=== PATIENT | female | born 1940 | race African-American/Black ===

== ENCOUNTER 2016-10-30 06:46 | Emergency (ER) | payer MEDICARE, OTHER ==
[~2016-10-30] VITALS: Ht 160 cm; Wt 88.0 kg
[~2016-10-30 06:46] MED LIST: ALPRAZOLAM0.25 M1 OR; AMBIEN5 MG PO; AMLODIPINE10 MG OR; AMLODIPINE5 MG PO; APAP/HYDROCO1 TA1 PO; APRESOLINE25 MG/TAB PO; APRESOLINE50 MG OR; ARICEPT10 MG PO; ASPIRIN EC81 MG PO; ATROVENT HFA17 MCG IN; BAYER LOW81 MG OR; BLOOD PRESSURE; CALCIUM + D OR; CARBAMAZEPIN200 MG OR; CELEBREX200 MG OR; CHOLESTEROL PILL; CLONIDINE0.1 MG PO; COUMADIN5 MG OR; COUMADIN5 MG PO; COUMADIN7.5 MG OR; CRESTOR5 MG OR; D3400 UNIT PO; DARVOCET-N 100100 MG OR; DILAUDID2 MG PO; DIOVAN320 MG OR; DUONEB IN; EFFEXOR75 MG PO; FLEXERIL OR; FUROSEMIDE20 MG PO; GABAPENTIN300 MG PO; HYDRALAZINE50 MG PO; LASIX40 MG OR; LOPRESSOR50 MG OR; LORCET OR; LORTAB 10 PO; LORTAB 10-325 M1 TAB PO; LORTAB 1010 MG PO; LORTAB5 PO; LOSARTAN POTASS50 MG PO; LOVENOX80 MG/0.8 SC; MECLIZINE25 MG PO; METOPROL TAR50 MG OR; MOBIC15 MG OR; MULT VITAMI1; MULTI VIT OR; NAPROSYN500 MG OR; NITROFURANTOIN100 M1 PO; NORCO1 TA1 PO; NORVASC10 M1 OR; NYSTATIN TOP; OMEPRAZOLE20 MG OR; OSCAL 500/1 TAB OR; PAROXETINE20 MG PO; PAXIL40 MG OR; PAXIL40 MG PO; PERCOCET 5/325M1 TAB OR; PREDNISONE10 MG OR; PRILOSEC20 MG PO; SILVADENE1 % EX; SIMVASTATIN20 MG OR; TEGRETOL OR; TEKTURNA300 MG OR; TRAMADOL HCL50 MG PO; ULTRAM50 M1 PO; VALTURNA PO; VENLAFAXINE HCL75 M1 PO; WARFARIN5 MG OR; WARFARIN5 MG PO; XANAX0.25 MG OR; ZITHROMAX250 MG PO; ZOCOR20 MG OR; ZPAK OR; [UNRECOGNIZED DRUG - OTHER] OR; [UNRECOGNIZED DRUG - REMARK]
[2016-10-30] MEDS ORDERED: PERCOCET 5/325M1 TAB PO (07:58)
[2016-10-30 08:07] VITALS: BP 144/81
== END 2016-10-30 08:13 | disposition home or self-care (01) ==
LOC: ED 06:46
DX: M79.605 Pain in left leg (principal); M54.16 Radiculopathy, lumbar region

== ENCOUNTER 2017-02-27 07:22 | Emergency (ER) | payer MEDICARE, OTHER ==
[~2017-02-27] VITALS: Ht 160 cm; Wt 96.0 kg
[~2017-02-27 07:22] MED LIST changes: +PERCOCET 5/325M1 TAB PO
[2017-02-27 08:09] VITALS: BP 128/75
[2017-02-27] MEDS ORDERED: PERCOCET 5/325M1 TAB PO (08:09)
[2017-02-27] MEDS ORDERED: EC-NAPROSYN500 MG PO (08:09)
== END 2017-02-27 08:20 | disposition home or self-care (01) ==
LOC: ED 07:22
DX: S80.01XA Contusion of right knee, initial encounter (principal); M25.561 Pain in right knee; W01.198A Fall on same level from slipping, tripping and stumbling with subsequent striking against other object, initial encounter; Y93.89 Activity, other specified; Y92.009 Unspecified place in unspecified non-institutional (private) residence as the place of occurrence of the external cause

== ENCOUNTER 2017-03-02 15:52 | Inpatient (IN) | payer MEDICARE, OTHER ==
[~2017-03-02] VITALS: Ht 160 cm; Wt 97.8 kg
[~2017-03-02 15:52] MED LIST changes: +EC-NAPROSYN500 MG PO
[2017-03-02 16:44] LABS: HEMOGLOBIN 9.3 g/dl (12.0-16.0); IMMATURE GRANULOCYTES 0.7 % (0.0-1.0); MEAN CELL VOLUME 98.6 fL CALC (80.0-100.0); MEAN CORPUSCULAR HGB 31.6 pG CALC (26.0-32.0); MEAN CORPUSCULAR HGB CONC 32.1 g/L CALC (32.0-36.0); NEUT# 7.08 thou/uL (2.00-7.15); RED BLOOD COUNT 2.94 mill/uL (4.20-5.60); RED CELL DISTRI WIDTH 13.9 % (11.5-15.5)
[2017-03-02 17:00] LABS: ALBUMIN 3.9 g/dL (3.2-5.0); BILIRUBIN, TOTAL 0.5 mg/dL (0.0-1.4); CREATININE 1.9 mg/dL (0.5-1.0); TOTAL PROTEIN 7.4 g/dL (6.3-8.2)
[2017-03-02 17:12] LABS: INTERNATIONAL NORMALIZED RATIO 4.9 RATIO (0.7-1.3); PROTHROMBIN TIME 60.3 SECONDS (9.0-12.5)
[2017-03-02] MEDS ORDERED: CELEBREX200 M1 PO (17:15)
[2017-03-02] MEDS ORDERED: ALLEGRA180 MG PO (17:19)
[2017-03-02] MEDS ORDERED: BISACODYL5 MG PO (17:19)
[2017-03-02 18:08] VITALS: BP 162/78
[2017-03-02 20:00] VITALS: BP 138/72
[2017-03-03 04:00] VITALS: BP 131/73
[2017-03-03 05:31] LABS: HEMATOCRIT 29.9 % (37.0-47.0); HEMOGLOBIN 9.5 g/dl (12.0-16.0); IMMATURE GRANULOCYTES 0.6 % (0.0-1.0); MEAN CORPUSCULAR HGB 31.5 pG CALC (26.0-32.0); MEAN CORPUSCULAR HGB CONC 31.8 g/L CALC (32.0-36.0); NEUT# 6.16 thou/uL (2.00-7.15); RED BLOOD COUNT 3.02 mill/uL (4.20-5.60); RED CELL DISTRI WIDTH 13.7 % (11.5-15.5)
[2017-03-03 06:16] LABS: INTERNATIONAL NORMALIZED RATIO 4.6 RATIO (0.7-1.3); PROTHROMBIN TIME 55.6 SECONDS (9.0-12.5)
[2017-03-03 06:28] LABS: CALCIUM 8.8 mg/dL (8.4-10.2); CREATININE 1.4 mg/dL (0.5-1.0); POTASSIUM 4.4 mmol/l (3.5-5.1)
[2017-03-03 07:59] VITALS: BP 136/70
[2017-03-03 15:00] VITALS: BP 155/74
[2017-03-03 19:50] VITALS: BP 154/86
[2017-03-04 04:24] VITALS: BP 142/72
[2017-03-04 06:18] LABS: HEMATOCRIT 28.7 % (37.0-47.0); HEMOGLOBIN 9.2 g/dl (12.0-16.0); IMMATURE GRANULOCYTES 1.6 % (0.0-1.0); MEAN CORPUSCULAR HGB 31.7 pG CALC (26.0-32.0); MEAN CORPUSCULAR HGB CONC 32.1 g/L CALC (32.0-36.0); NEUT# 5.39 thou/uL (2.00-7.15); RED BLOOD COUNT 2.9 mill/uL (4.20-5.60); RED CELL DISTRI WIDTH 13.9 % (11.5-15.5)
[2017-03-04 06:36] LABS: INTERNATIONAL NORMALIZED RATIO 2.4 RATIO (0.7-1.3); PROTHROMBIN TIME 28.1 SECONDS (9.0-12.5)
[2017-03-04 06:41] LABS: CALCIUM 8.8 mg/dL (8.4-10.2); CREATININE 1.2 mg/dL (0.5-1.0); POTASSIUM 4.4 mmol/l (3.5-5.1)
[2017-03-04 15:55] VITALS: BP 146/70
[2017-03-04 19:20] VITALS: BP 151/77
[2017-03-05 03:37] VITALS: BP 125/70
[2017-03-05 06:06] LABS: CREATININE 1.1 mg/dL (0.5-1.0); POTASSIUM 4.4 mmol/l (3.5-5.1)
[2017-03-05 06:17] LABS: INTERNATIONAL NORMALIZED RATIO 1.4 RATIO (0.7-1.3); PROTHROMBIN TIME 15.3 SECONDS (9.0-12.5)
[2017-03-05 08:00] VITALS: BP 141/72
[2017-03-05 14:03] VITALS: BP 150/72
[2017-03-05 14:05] VITALS: BP 150/72
[2017-03-05] MEDS ORDERED: FLORASTOR250 M1 PO (15:23)
[2017-03-05] MEDS ORDERED: KEFLEX500 MG PO (15:23)
== END 2017-03-05 16:39 | disposition home or self-care (01) | DRG 603 ==
LOC: ENPENDDIS → ED 15:52 → ED-I 17:05 → ED 17:15 → MS2 17:16
PROVIDERS: Emergency Medicine; ADMIT Internal Medicine; ATTEND Internal Medicine
DX: L03.115 Cellulitis of right lower limb (principal); N17.9 Acute kidney failure, unspecified; I12.9 Hypertensive chronic kidney disease with stage 1 through stage 4 chronic kidney disease, or unspecified chronic kidney disease; N18.9 Chronic kidney disease, unspecified; S89.91XA Unspecified injury of right lower leg, initial encounter; E78.5 Hyperlipidemia, unspecified; M19.90 Unspecified osteoarthritis, unspecified site; K21.9 Gastro-esophageal reflux disease without esophagitis; M81.0 Age-related osteoporosis without current pathological fracture; F32.9 Major depressive disorder, single episode, unspecified; G62.9 Polyneuropathy, unspecified; R79.1 Abnormal coagulation profile; G89.4 Chronic pain syndrome; T45.515A Adverse effect of anticoagulants, initial encounter; T39.395A Adverse effect of other nonsteroidal anti-inflammatory drugs [NSAID], initial encounter; W07.XXXA Fall from chair, initial encounter; Y92.009 Unspecified place in unspecified non-institutional (private) residence as the place of occurrence of the external cause; Z86.711 Personal history of pulmonary embolism; Z86.73 Personal history of transient ischemic attack (TIA), and cerebral infarction without residual deficits
CPT/HCPCS: G0378; J1650

== ENCOUNTER 2017-04-11 08:00 | Day surgery (SDC) | payer MEDICARE, OTHER ==
[~2017-04-11] VITALS: Ht 160 cm; Wt 94.3 kg
[~2017-04-11 08:00] MED LIST changes: +ALLEGRA180 MG PO; +BISACODYL5 MG PO; +CALCIUM + D3 601 TAB PO; +CELEBREX200 M1 PO; +FLONASE AL50 MCG/ACT; +FLORASTOR250 M1 PO; +GABAPENTIN100 MG PO; -GABAPENTIN300 MG PO; +KEFLEX500 MG PO; +PROLIA60 MG/ML SC; +TEMAZEPAM15 MG PO
[2017-04-11 10:41] VITALS: BP 158/81
== END 2017-04-11 10:33 | disposition home or self-care (01) ==
LOC: ENDO 08:00 → ORM 19:45 → ENDO 19:45
PROVIDERS: ATTEND Internal Medicine Gastroenterology
PROC: 0DB78ZX Excision of Stomach, Pylorus, Via Natural or Artificial Opening Endoscopic, Diagnostic (ICD-10-PCS; principal; 2017-04-11)
PROC: 0D738ZZ Dilation of Lower Esophagus, Via Natural or Artificial Opening Endoscopic (ICD-10-PCS; 2017-04-11)
PROC: 0D718ZZ Dilation of Upper Esophagus, Via Natural or Artificial Opening Endoscopic (ICD-10-PCS; 2017-04-11)
DX: K22.2 Esophageal obstruction (principal); K21.9 Gastro-esophageal reflux disease without esophagitis; K59.00 Constipation, unspecified; K62.5 Hemorrhage of anus and rectum; K44.9 Diaphragmatic hernia without obstruction or gangrene; K31.89 Other diseases of stomach and duodenum; K29.00 Acute gastritis without bleeding

== ENCOUNTER 2017-06-21 17:45 | Emergency (ER) | payer MEDICARE, OTHER ==
[~2017-06-21] VITALS: Ht 160 cm; Wt 96.0 kg
[2017-06-21 19:15] VITALS: BP 137/68
== END 2017-06-21 19:15 | disposition home or self-care (01) ==
LOC: ED 17:45
DX: G89.29 Other chronic pain (principal); M79.605 Pain in left leg; M54.5 Low back pain; M79.652 Pain in left thigh; M25.562 Pain in left knee

== ENCOUNTER → 2018-10-12 | Outpatient (REF) | payer MEDICARE, OTHER ==
[~2018-10-12] MED LIST changes: +ATIVAN0.5 MG PO; +FLEXERIL PO; +PERCOCET 10/31 COMBO PO; +TORADOL PO
[2018-10-12 15:26] LABS: HEMATOCRIT 28.7 % (37.0-47.0); IMMATURE GRANULOCYTES 0.7 % (0.0-5.0); MEAN CELL VOLUME 98.6 fL CALC (80.0-100.0); MEAN CORPUSCULAR HGB 30.9 pG CALC (26.0-32.0); MEAN CORPUSCULAR HGB CONC 31.4 g/L CALC (32.0-36.0); NEUT# 5.75 thou/uL (2.00-7.15); RED BLOOD COUNT 2.91 mill/uL (4.20-5.60); RED CELL DISTRI WIDTH 13.7 % (11.5-15.5)
[2018-10-12 15:30] LABS: INTERNATIONAL NORMALIZED RATIO 1.7 RATIO (0.7-1.3); PROTHROMBIN TIME 17.4 SECONDS (9.0-12.5)
== END | disposition home or self-care (01) ==
LOC: CT 14:00
PROVIDERS: Internal Medicine; ATTEND Nurse Practitioner Adult Health
DX: J98.4 Other disorders of lung (principal); Z79.01 Long term (current) use of anticoagulants

== ENCOUNTER 2018-10-15 12:08 | Outpatient (RCR) | payer MEDICARE, OTHER ==
--- NOTE | 2018-10-10 09:25 | NUR ---
PT TO ICU 2 BY WC WITH SECURITY. VS TAKEN. PT STABLE. IV THERAPY PENDING MEDICATION FROM PHARMACY. DELAY IN MEDICATION/THERAPY D/T CODE BLUE IN ER.
--- NOTE | 2018-10-10 09:44 | NUR ---
PT AWARE OF DELAY OF TREATMENT. PT VOICING DISCONTENT OVER HAVING TO WAIT BC "SHE THOUGHT IT WOULD BE REAL QUICK".
[2018-10-10 09:51] VITALS: BP 127/89
[~2018-10-15 12:08] MED LIST changes: -ATIVAN0.5 MG PO; -TORADOL PO
== END 2018-10-15 13:08 | disposition home or self-care (01) ==
LOC: INF 12:08
PROVIDERS: ATTEND Internal Medicine
DX: I82.509 Chronic embolism and thrombosis of unspecified deep veins of unspecified lower extremity (principal); I26.99 Other pulmonary embolism without acute cor pulmonale

== ENCOUNTER → 2018-10-15 | Outpatient (REF) | payer MEDICARE, OTHER ==
[2018-10-15 13:04] LABS: HEMATOCRIT 27.6 % (37.0-47.0); HEMOGLOBIN 8.4 g/dl (12.0-16.0); MEAN CELL VOLUME 99.3 fL CALC (80.0-100.0); MEAN CORPUSCULAR HGB 30.2 pG CALC (26.0-32.0); MEAN CORPUSCULAR HGB CONC 30.4 g/L CALC (32.0-36.0); RED BLOOD COUNT 2.78 mill/uL (4.20-5.60); RED CELL DISTRI WIDTH 13.6 % (11.5-15.5)
[2018-10-15 13:16] LABS: CREATININE 2.6 mg/dL (0.5-1.0); POTASSIUM 4.4 mmol/l (3.5-5.1)
== END | disposition home or self-care (01) ==
LOC: LAB 11:18
PROVIDERS: ATTEND Nurse Practitioner Family
DX: D63.1 Anemia in chronic kidney disease (principal); N18.3 Chronic kidney disease, stage 3 (moderate)

== ENCOUNTER 2018-11-01 19:14 | Emergency (ER) | payer MEDICARE, OTHER ==
[~2018-11-01] VITALS: Ht 160 cm; Wt 97.0 kg
[2018-11-01 20:01] LABS: HEMATOCRIT 28.6 % (37.0-47.0); HEMOGLOBIN 8.7 g/dl (12.0-16.0); IMMATURE GRANULOCYTES 0.5 % (0.0-5.0); MEAN CELL VOLUME 97.6 fL CALC (80.0-100.0); MEAN CORPUSCULAR HGB 29.7 pG CALC (26.0-32.0); MEAN CORPUSCULAR HGB CONC 30.4 g/L CALC (32.0-36.0); NEUT# 7.63 thou/uL (2.00-7.15); RED BLOOD COUNT 2.93 mill/uL (4.20-5.60)
[2018-11-01 20:23] LABS: D-DIMER 0.73 mg/L (0.19-0.60); INTERNATIONAL NORMALIZED RATIO 1.6 RATIO (0.7-1.3); PROTHROMBIN TIME 16.5 SECONDS (9.0-12.5)
[2018-11-01 20:42] LABS: ALBUMIN 3.9 g/dL (3.2-5.0); ALKALINE PHOSPHATASE 81 u/l (38-126); BILIRUBIN, TOTAL 0.4 mg/dL (0.0-1.4); BUN 27 mg/dL (8-23); BUN/CREATININE RATIO 11 (12-20 (CALC)); CARBON DIOXIDE 25 mmol/l (22-30); CHLORIDE 104 mmol/l (95-108); CREATININE 2.5 mg/dL (0.5-1.0); GFR 19 ML/MIN (>=60 (CALC)); GFR FOR AFR.AMER. 22 ML/MIN (>=60 (CALC)); POTASSIUM 3.7 mmol/l (3.5-5.1); SGOT/AST 21 u/l (9-36); TOTAL PROTEIN 7.1 g/dL (6.3-8.2)
[2018-11-01 20:53] LABS: MYOGLOBIN 69 ng/mL (0 - 62)
[2018-11-01 21:03] LABS: ANION GAP 13 (6-22 (CALC)); SODIUM 138 mmol/l (137-146)
[2018-11-01 21:19] LABS: URINE BILIRUBIN - DIPSTICK NEGATIVE (NEGATIVE); URINE BLOOD DIPSTICK MODERATE (NEGATIVE); URINE COLOR YELLOW; URINE GLUCOSE - DIPSTICK NEGATIVE (NEGATIVE); URINE KETONE NEGATIVE (NEGATIVE); URINE LEUK ESTERASE NEGATIVE (NEGATIVE); URINE NITRITE - DIPSTICK NEGATIVE (Negative); URINE PROTEIN - DIPSTICK 30 mg/dL (NEG-TRACE); URINE SPECIFIC GRAVITY 1.015; URINE UROBILINOGEN - DIPSTICK 0.2 E.U./dL (0.2)
[2018-11-01 21:41] LABS: URINE SQUAMOUS EPITHELIAL CELL FEW EPI/hpf (0-FEW)
[2018-11-01] MEDS ORDERED: ATIVAN0.5 MG PO (21:48)
[2018-11-01] MEDS ORDERED: TORADOL PO (21:48)
[2018-11-01 23:10] VITALS: BP 127/58
== END 2018-11-01 23:10 | disposition home or self-care (01) ==
LOC: ED 19:14
PROVIDERS: Family Medicine
DX: R07.89 Other chest pain (principal); F41.9 Anxiety disorder, unspecified; R79.1 Abnormal coagulation profile; I10 Essential (primary) hypertension; Z86.711 Personal history of pulmonary embolism; R06.02 Shortness of breath
CPT/HCPCS: J1650; J2060

== ENCOUNTER 2018-11-06 21:31 | Observation (INO) | payer MEDICARE, OTHER ==
[~2018-11-06] VITALS: Ht 160 cm; Wt 95.0 kg
[~2018-11-06 21:31] MED LIST changes: +ATIVAN0.5 MG PO; +TORADOL PO
--- NOTE | 2018-11-06 21:34 | NUR ---
PT IMMEDIATELY TO ROOM # 15 FOR BEDSDIE TRIAGE
--- NOTE | 2018-11-06 22:15 | NUR ---
RT AT BEDSIDE FOR ABG. PT MEDICATED ORDERED.
[2018-11-06 22:16] LABS: HEMATOCRIT 30.1 % (37.0-47.0); HEMOGLOBIN 9.3 g/dl (12.0-16.0); IMMATURE GRANULOCYTES 0.6 % (0.0-5.0); MEAN CELL VOLUME 99.3 fL CALC (80.0-100.0); MEAN CORPUSCULAR HGB 30.7 pG CALC (26.0-32.0); MEAN CORPUSCULAR HGB CONC 30.9 g/L CALC (32.0-36.0); RED BLOOD COUNT 3.03 mill/uL (4.20-5.60); RED CELL DISTRI WIDTH 14.3 % (11.5-15.5)
--- NOTE | 2018-11-06 22:30 | NUR ---
PT GIVEN WARM BLANKETS AND LIGHTS DIMMED FOR COMFORT. CALL LIGHT IN REACH.
[2018-11-06 22:32] LABS: ACT PARTIAL THROMBO TIME 62.5 SECONDS (20.0-32.5); ALBUMIN 4.2 g/dL (3.2-5.0); ALKALINE PHOSPHATASE 90 u/l (38-126); ANION GAP 13 (6-22 (CALC)); BILIRUBIN, TOTAL 0.4 mg/dL (0.0-1.4); BUN 26 mg/dL (8-23); BUN/CREATININE RATIO 13 (12-20 (CALC)); CARBON DIOXIDE 25 mmol/l (22-30); CHLORIDE 110 mmol/l (95-108); CREATININE 2.1 mg/dL (0.5-1.0); GFR 23 ML/MIN (>=60 (CALC)); GFR FOR AFR.AMER. 27 ML/MIN (>=60 (CALC)); INTERNATIONAL NORMALIZED RATIO 2.6 RATIO (0.7-1.3); POTASSIUM 3.8 mmol/l (3.5-5.1); PROTHROMBIN TIME 26.6 SECONDS (9.0-12.5); SGOT/AST 34 u/l (9-36); SODIUM 143 mmol/l (137-146); TOTAL PROTEIN 8.1 g/dL (6.3-8.2)
[2018-11-06 22:43] LABS: MYOGLOBIN 47 ng/mL (0 - 62)
[2018-11-07] VITALS (9 sets, daily range): BP systolic 140–200; BP diastolic 69–96
--- NOTE | 2018-11-07 00:26 | NUR ---
DR HERNANDEZ AT BEDSIDE TO DISCUSS PLAN TO ADMIT. PT DECIDES SHE WANTS TO LEAVE, Patient decides to leave AMA. Multiple attempts made to ecourage patient to remain here for continued treatment. Explained to patient all risks of leaving against medical advice including . Pt verbalized understanding of all risks. Pt also encouraged to return to [facility] at any time, especially if symptoms continue or become worse. Pt verbalized understanding.
--- NOTE | 2018-11-07 01:00 | NUR ---
PT DECIDES SHE WANTS TO STAY AND BE ADMITTED AFTERALL. DR HERNANDEZ AT BEDSIDE TO DISCUSS PLAN.
--- NOTE | 2018-11-07 01:20 | NUR ---
PT ASSISTED TO RESTROOM VIA WC
--- NOTE | 2018-11-07 01:20 | NUR ---
REPORT TO CORTEZ RENEE
--- NOTE | 2018-11-07 01:45 | NUR ---
MULTIPLE ATTEMPTS MADE TO ESTABLISH IV UNSUCCESSFUL, DR HERNANDEZ NOTIFIED. STATES OK FOR PT TO GO TO [facility]SUR WITHOUT IV. PT TO MS IN STABLE CONDITION VIA WC.
--- NOTE | 2018-11-07 01:50 | NUR ---
PT ARRIVES TO THE FLOOR VIA WHEELCHAIR WITH HOUSE SUP IN STABLE CONDITION. PT AMUBULATEDS WITH UNSTEADY GAIT TO BED. PER ER STAFF NO IV AFTER MULTIPLE TRIES. DR HERNANDEZ AWARE. PT IS A&0 X3. NO PAIN AT THIS TIME. ASSESMENT COMLETED AT THIS TIME. PT ORIENTED TO ROOM AND CALL [facility]. INSTRUCTED TO CALL IF SHE NEEDED TO USE RR OR ANY THING ELSE. PT VERBALIZES UNDERSTANDING. CALL [facility] IN REACH. WILL CONTINUE TO MONITOR.
--- NOTE | 2018-11-07 05:29 | NUR ---
PT RESTING QUIETLY IN BED. NO S/S OF DISTRESS NOTED CALL [facility] IN REACH. WILL CONTINUE TO MONITOR.
[2018-11-07 05:55] LABS: CHOLESTEROL HDL RATIO 5.1 (<4.4 (CALC)); CREATININE 1.8 mg/dL (0.5-1.0); POTASSIUM 3.7 mmol/l (3.5-5.1)
--- NOTE | 2018-11-07 07:48 | NUR ---
PT A/O X3. SPEECH IS CLEAR. RESP EVEN AND UNLABORED. LUNG SOUNDS CLEAR. TELE IN PLACE. NITRO PATCH IN PLACE. BOWEL SOUNDS ACTIVE X4. STRONG RADIAL, WEAK PEDAL PULSES. PT HAS SOME BRUISING THROUGHOUT BODY. SKIN INTACT. NO C/O PAIN OR NEEDS. POC DISCUSSED. SAFETY PRECAUTIONS IN PLACE. CALL LIGHT IN REACH. WILL CONTINUE TO MONITOR.
[2018-11-07 09:35] LABS: HEMATOCRIT 30.1 % (37.0-47.0); HEMOGLOBIN 9.1 g/dl (12.0-16.0); IMMATURE GRANULOCYTES 0.5 % (0.0-5.0); MEAN CORPUSCULAR HGB 29.9 pG CALC (26.0-32.0); MEAN CORPUSCULAR HGB CONC 30.2 g/L CALC (32.0-36.0); NEUT# 5.15 thou/uL (2.00-7.15); RED BLOOD COUNT 3.04 mill/uL (4.20-5.60); RED CELL DISTRI WIDTH 14.3 % (11.5-15.5)
[2018-11-07 09:37] LABS: MAGNESIUM 1.9 mg/dL (1.6-2.3)
--- NOTE | 2018-11-07 12:05 | NUR ---
PT EATING LUNCH IN RECLINER. NO C/O PAIN OR NEEDS. CALL LIGHT IN REACH. WILL CONTINUE TO MONITOR.
[2018-11-07 13:37] LABS: URINE BILIRUBIN - DIPSTICK NEGATIVE (NEGATIVE); URINE BLOOD DIPSTICK MODERATE (NEGATIVE); URINE COLOR YELLOW; URINE GLUCOSE - DIPSTICK NEGATIVE (NEGATIVE); URINE KETONE NEGATIVE (NEGATIVE); URINE LEUK ESTERASE NEGATIVE (NEGATIVE); URINE NITRITE - DIPSTICK NEGATIVE (Negative); URINE PROTEIN - DIPSTICK 100 mg/dL (NEG-TRACE); URINE SPECIFIC GRAVITY 1.015; URINE UROBILINOGEN - DIPSTICK 0.2 E.U./dL (0.2)
[2018-11-07 15:13] LABS: URINE SQUAMOUS EPITHELIAL CELL FEW EPI/hpf (0-FEW)
--- NOTE | 2018-11-07 16:15 | NUR ---
PT SITTING IN RECLINER TALKING W/ FAMILY. NO C/O PAIN OR NEEDS. CALL LIGHT IN REACH. WILL CONTINUE TO MONITOR.
--- NOTE | 2018-11-07 20:10 | NUR ---
PATIENT RESTING IN BED AT THIS TIME-AWAKE ALERT AND ORIENTEDX3. PATIENT STATES THAT HER PAIN IS IMPROVED SINCE TAKING PAIN MEDS TO 4/10. PATIENT WITH TELE MONITOR IN PLACE. SAFETY PRECAUTIONS REINFORCED. CALL LIGHT IN REACH. WILL CONT TO MONITOR. CALL LIGHT IN REACH. WILL CONT TO MONITOR.
--- NOTE | 2018-11-07 21:15 | NUR ---
PATIENT RESTING IN BED-AWAKE AND ALERT. PATIENT MEDICATED WITH RESTORIL 15MG AND ATIVAN 0.5MG PO FOR SLEEP. TELE REMAINS IN PLACE. CALL LIGHT IN REACH. WILL CONT TO MONITOR.
[2018-11-08 00:04] VITALS: BP 157/78
--- NOTE | 2018-11-08 00:54 | NUR ---
PATIENT APPEARS SLEEPING AT THIS TIME WITH EYES CLOSED. RESP ARE EVEN AND UNLABORED. CALL LIGHT IN REACH. WILL CONT TO MONITOR.
--- NOTE | 2018-11-08 03:39 | NUR ---
PATIENT RESTING IN BED AND APPEARS SLEEPING AT THIS TIME. TELE MONITOR IN PLACE. CALL LIGHT IN REACH. WILL CONT TO MONITOR.
[2018-11-08 04:05] VITALS: BP 132/72
[2018-11-08 05:28] LABS: ANION GAP 13 (6-22 (CALC)); BUN 21 mg/dL (8-23); BUN/CREATININE RATIO 12 (12-20 (CALC)); CARBON DIOXIDE 25 mmol/l (22-30); CHLORIDE 108 mmol/l (95-108); CREATININE 1.8 mg/dL (0.5-1.0); GFR 27 ML/MIN (>=60 (CALC)); GFR FOR AFR.AMER. 33 ML/MIN (>=60 (CALC)); MAGNESIUM 1.8 mg/dL (1.6-2.3); POTASSIUM 3.8 mmol/l (3.5-5.1); SODIUM 143 mmol/l (137-146)
[2018-11-08 05:36] LABS: INTERNATIONAL NORMALIZED RATIO 2.3 RATIO (0.7-1.3); PROTHROMBIN TIME 24.1 SECONDS (9.0-12.5)
[2018-11-08 06:03] LABS: HEMATOCRIT 30.5 % (37.0-47.0); HEMOGLOBIN 9.4 g/dl (12.0-16.0); IMMATURE GRANULOCYTES 0.7 % (0.0-5.0); MEAN CELL VOLUME 97.4 fL CALC (80.0-100.0); MEAN CORPUSCULAR HGB CONC 30.8 g/L CALC (32.0-36.0); NEUT# 5.08 thou/uL (2.00-7.15); RED BLOOD COUNT 3.13 mill/uL (4.20-5.60); RED CELL DISTRI WIDTH 14.2 % (11.5-15.5)
--- NOTE | 2018-11-08 07:20 | NUR ---
PT REPORT RECIEVED FROM GUIDO GIBBONS. PT IN RECLINER RESTING. NO S/S OF DISTRESS. CALL LIGHT IN REACH. WILL CONTINUE TO MONITOR.
[2018-11-08 07:53] VITALS: BP 144/80
--- NOTE | 2018-11-08 07:53 | NUR ---
PT A/O X3. SPEECH IS CLEAR. RESP EVEN AND UNLABORED. LUNG SOUNDS CLEAR. TELE IN PLACE. BOWEL SOUNDS ACTIVE X4. STRONG RADIAL AND PEDAL. SKIN INTACT. PT DENIES ANY PAIN OR NEEDS. POC DISCUSSED. SAFETY PRECAUTIONS IN PLACE. CALL LIGHT IN REACH. WILL CONTINUE TO MONITOR.
--- NOTE | 2018-11-08 12:34 | NUR ---
PT EATING LUNCH IN RECLINER. NO C/O PAIN OR NEEDS. CALL LIGHT IN REACH. WILL CONTINUE TO MONITOR.
[2018-11-08 12:55] VITALS: BP 144/78
--- NOTE | 2018-11-08 14:05 | NUR ---
D/C INSTRUCTIONS DISCUSSED W/ PT. PT STATES UNDERSTANDING. IV REMOVED. CATHETER INTACT. PT GETTING DRESSED. GRANDSON AT BEDSIDE.
--- NOTE | 2018-11-08 14:11 | NUR ---
Discharge instructions given. Patient verbalizes understanding of same. Discharged in stable condition via Wheelchair to Home with family. All belongings sent with pt.
[2018-11-08 14:16] VITALS: BP 144/78
== END 2018-11-08 14:10 | disposition home or self-care (01) ==
LOC: ED 21:31 → ED-I 11-07 00:55 → ED 11-07 01:07 → MS2 11-07 01:08
PROVIDERS: Emergency Medicine; Nurse Practitioner Family; ADMIT Internal Medicine; ATTEND Internal Medicine
DX: I16.0 Hypertensive urgency (principal); I12.9 Hypertensive chronic kidney disease with stage 1 through stage 4 chronic kidney disease, or unspecified chronic kidney disease; N18.3 Chronic kidney disease, stage 3 (moderate); T46.5X6A Underdosing of other antihypertensive drugs, initial encounter; G62.9 Polyneuropathy, unspecified; M19.90 Unspecified osteoarthritis, unspecified site; E78.5 Hyperlipidemia, unspecified; R91.8 Other nonspecific abnormal finding of lung field; F41.9 Anxiety disorder, unspecified; F32.9 Major depressive disorder, single episode, unspecified; I48.91 Unspecified atrial fibrillation; D64.9 Anemia, unspecified; Z86.711 Personal history of pulmonary embolism; Z91.128 Patient's intentional underdosing of medication regimen for other reason; Z86.718 Personal history of other venous thrombosis and embolism; Z86.73 Personal history of transient ischemic attack (TIA), and cerebral infarction without residual deficits; Z79.01 Long term (current) use of anticoagulants; R06.02 Shortness of breath; R07.89 Other chest pain

== ENCOUNTER 2018-12-20 16:18 | Emergency (ER) | payer MEDICARE, OTHER ==
[~2018-12-20] VITALS: Ht 160 cm; Wt 97.0 kg
[~2018-12-20 16:18] MED LIST changes: +CALCITRIOL0.25 MC1 PO; +DIFLUCAN150 MG PO; +DONEPEZIL5 MG PO; +EMLA EX; +LASIX 40 MG TAB40 MG PO; +OXYBUTYNIN5 M1 PO; +VITAMIN D32000 UNI2 PO
[2018-12-20 18:21] LABS: HEMATOCRIT 28.4 % (37.0-47.0); HEMOGLOBIN 8.6 g/dl (12.0-16.0); IMMATURE GRANULOCYTES 0.9 % (0.0-5.0); MEAN CELL VOLUME 97.6 fL CALC (80.0-100.0); MEAN CORPUSCULAR HGB 29.6 pG CALC (26.0-32.0); MEAN CORPUSCULAR HGB CONC 30.3 g/L CALC (32.0-36.0); NEUT# 8.06 thou/uL (2.00-7.15); RED BLOOD COUNT 2.91 mill/uL (4.20-5.60); RED CELL DISTRI WIDTH 14.5 % (11.5-15.5)
[2018-12-20 18:52] LABS: INTERNATIONAL NORMALIZED RATIO 5.5 RATIO (0.7-1.3); PROTHROMBIN TIME 56.4 SECONDS (9.0-12.5)
[2018-12-20 18:58] LABS: ALBUMIN 4.1 g/dL (3.2-5.0); ALKALINE PHOSPHATASE 80 u/l (38-126); ANION GAP 15 (6-22 (CALC)); BILIRUBIN, TOTAL 0.5 mg/dL (0.0-1.4); BUN 27 mg/dL (8-23); BUN/CREATININE RATIO 13 (12-20 (CALC)); CARBON DIOXIDE 27 mmol/l (22-30); CHLORIDE 106 mmol/l (95-108); GFR 24 ML/MIN (>=60 (CALC)); GFR FOR AFR.AMER. 29 ML/MIN (>=60 (CALC)); POTASSIUM 3.6 mmol/l (3.5-5.1); SODIUM 143 mmol/l (137-146); TOTAL PROTEIN 7.6 g/dL (6.3-8.2)
[2018-12-20 19:00] LABS: SGOT/AST 71 u/l (9-36)
[2018-12-20 19:09] LABS: MYOGLOBIN 63 ng/mL (0 - 62)
[2018-12-20 20:37] LABS: URINE BILIRUBIN - DIPSTICK NEGATIVE (NEGATIVE); URINE BLOOD DIPSTICK LARGE (NEGATIVE); URINE COLOR YELLOW; URINE GLUCOSE - DIPSTICK NEGATIVE (NEGATIVE); URINE KETONE NEGATIVE (NEGATIVE); URINE NITRITE - DIPSTICK NEGATIVE (Negative); URINE PROTEIN - DIPSTICK 100 mg/dL (NEG-TRACE); URINE UROBILINOGEN - DIPSTICK 0.2 E.U./dL (0.2)
[2018-12-20 20:45] LABS: URINE LEUK ESTERASE MODERATE (NEGATIVE)
[2018-12-20 20:46] LABS: BARBITURATES NEGATIVE (NEGATIVE); COCAINE NEGATIVE (NEGATIVE); METHADONE NEGATIVE (NEGATIVE); OXCYCODONE NEGATIVE (NEGATIVE); TETRAHYDROCANNABIONOL NEGATIVE (NEGATIVE); TRICYLIC ANTIDEPRESSANTS NEGATIVE (NEGATIVE)
[2018-12-20 20:52] LABS: URINE BACTERIA FEW hpf; URINE RBC TNTC RBC/hpf (0-5); URINE SQUAMOUS EPITHELIAL CELL FEW EPI/hpf (0-FEW); URINE WBC 20-50 WBC/hpf (0-5)
[2018-12-21 00:15] VITALS: BP 162/70
== END 2018-12-21 00:15 | disposition short-term general hospital (02) ==
LOC: ED 16:18
PROVIDERS: Emergency Medicine
DX: I16.0 Hypertensive urgency (principal); J18.9 Pneumonia, unspecified organism; N39.0 Urinary tract infection, site not specified; D64.9 Anemia, unspecified; N28.9 Disorder of kidney and ureter, unspecified; D72.829 Elevated white blood cell count, unspecified; R91.8 Other nonspecific abnormal finding of lung field; D68.9 Coagulation defect, unspecified; R53.1 Weakness; R94.31 Abnormal electrocardiogram [ECG] [EKG]; Z86.711 Personal history of pulmonary embolism; Z79.01 Long term (current) use of anticoagulants

== ENCOUNTER 2019-04-05 06:53 | Observation (INO) | payer MEDICARE, OTHER ==
[~2019-04-05] VITALS: Ht 160 cm; Wt 105.7 kg
--- NOTE | 2019-04-05 07:13 | NUR ---
PT TAKEN TO ROOM VIA WHEELCHAIR, ACCOMPANIED BY FAMILY.
--- NOTE | 2019-04-05 07:25 | NUR ---
PER FAMILY PT HAS INCREASED GENERALIZED WEAKNESS AND PAIN TO LEFT HIP. PT A&O X 3. PT REPORTS MINIMAL CONFUSION WHICH IS BASELINE. PT DENIES ANY SOB OR CHEST PAIN. PT UP TO SIDE OF BED WITH 2 ASSIST TO CHANGE IN TO GOWN. BILATERAL LS DIMINISHED. PT AWARE OF PLAN OF CARE AND WAIT TIME. IV ACCESS OBTAINED. PSONS AT BEDSIDE.
--- NOTE | 2019-04-05 07:45 | NUR ---
LAB AT BEDSIDE, UNABLE TO GET SPECIMEN AT THIS TIME AFTER NUMEROUS ATTEMPTS.
[2019-04-05 08:08] LABS: HEMATOCRIT 38.6 % (37.0-47.0); HEMOGLOBIN 11.8 g/dl (12.0-16.0); IMMATURE GRANULOCYTES 1.1 % (0.0-5.0); MEAN CELL VOLUME 99.2 fL CALC (80.0-100.0); MEAN CORPUSCULAR HGB 30.3 pG CALC (26.0-32.0); MEAN CORPUSCULAR HGB CONC 30.6 g/L CALC (32.0-36.0); NEUT# 8.08 thou/uL (2.00-7.15); RED BLOOD COUNT 3.89 mill/uL (4.20-5.60); RED CELL DISTRI WIDTH 18.6 % (11.5-15.5)
[2019-04-05 08:19] LABS: ALBUMIN 3.9 g/dL (3.2-5.0); ALKALINE PHOSPHATASE 85 u/l (38-126); ANION GAP 18 (6-22 (CALC)); BILIRUBIN, TOTAL 0.4 mg/dL (0.0-1.4); BUN 27 mg/dL (8-23); BUN/CREATININE RATIO 10 (12-20 (CALC)); CARBON DIOXIDE 21 mmol/l (22-30); CHLORIDE 111 mmol/l (95-108); CREATININE 2.9 mg/dL (0.5-1.0); GFR 16 ML/MIN (>=60 (CALC)); GFR FOR AFR.AMER. 19 ML/MIN (>=60 (CALC)); POTASSIUM 4.7 mmol/l (3.5-5.1); SGOT/AST 23 u/l (9-36); SODIUM 145 mmol/l (137-146); TOTAL PROTEIN 7.4 g/dL (6.3-8.2)
--- NOTE | 2019-04-05 08:19 | NUR ---
PT RETURNED FROM CT SCAN. SON AT BEDSIDE. PT AND SON UNABLE TO RECONCILE MEDICATIONS AT THIS TIME. SON WILL BRING MEDICATION LIST ONCE HE COMES HOME.
--- NOTE | 2019-04-05 08:25 | NUR ---
PT BP 186/79. NOTIFIED OF INCREASING TREND. NO NEW ORDERS RECIEVED.
--- NOTE | 2019-04-05 08:30 | NUR ---
LAB AT BEDSIDE SAMPLE OBTAINED.
[2019-04-05 08:51] LABS: TSH, 3RD GENERATION 1.45 uIU/mL (0.47 - 4.68)
[2019-04-05 09:28] LABS: INTERNATIONAL NORMALIZED RATIO 2.1 RATIO (0.7-1.3); PROTHROMBIN TIME 21.3 SECONDS (9.0-12.5)
[2019-04-05 09:28] LABS: URINE BILIRUBIN - DIPSTICK NEGATIVE (NEGATIVE); URINE BLOOD DIPSTICK SMALL (NEGATIVE); URINE COLOR YELLOW; URINE GLUCOSE - DIPSTICK NEGATIVE (NEGATIVE); URINE KETONE NEGATIVE (NEGATIVE); URINE LEUK ESTERASE TRACE (NEGATIVE); URINE NITRITE - DIPSTICK NEGATIVE (Negative); URINE PH 5.5 (4.5-8.0); URINE PROTEIN - DIPSTICK 30 mg/dL (NEG-TRACE); URINE SPECIFIC GRAVITY <=1.005; URINE UROBILINOGEN - DIPSTICK 0.2 E.U./dL (0.2)
[2019-04-05 09:30] LABS: URINE EPITHELIAL CELLS MODERATE EPI/hpf (0-FEW); URINE WBC 0-2 WBC/hpf (0-5)
--- NOTE | 2019-04-05 09:30 | NUR ---
PT RESTING IN STRETCHER AND DENIES ANY NEEDS AT THIS TIME. CALL JAY OROZCO.
--- NOTE | 2019-04-05 10:00 | NUR ---
PER NÉSTOR IN PHARMCAY TO NOT DC MEDICATIONS AND WAIT FOR LIST FROM HOME TO RECONCILE.
--- NOTE | 2019-04-05 10:37 | NUR ---
REPORT CALLED TO KYLAH LORA
[2019-04-05 10:45] VITALS: BP 166/59
--- NOTE | 2019-04-05 10:45 | NUR ---
PT ARIVED TO THE FLOOR VIA STRETCHER ACCOMPANIED BY ER STAFF AND FAMILY. X3 ASSIST FROM STRETCHER TO BED. PT TOLERATED WELL. VS OBTAINED AND ASSESSMENT COMPLETED.PT ALERT AND ORIENTED. RESPIRATIONS EVEN AND UNLABORED ON RA. LUNGS SOUND CLEAR DIMINISHED. PEDAL PULSES STRONG. SKIN IS INTACT. PT ORIENTED TO ROOM AND CALL [facility]. SAFEY PRECAUTIONS IN PLACE. WILL CONTINUE TO MONITOR.
[2019-04-05] MEDS ORDERED: OMEPRAZOLE DR40 MG PO (11:53)
[2019-04-05] MEDS ORDERED: ZYLOPRIM100 MG PO (11:58)
--- NOTE | 2019-04-05 12:15 | NUR ---
PT RESTING IN BED NO S/S OF DISTRESS AT THIS TIME. PT DENIES ANY NEEDS. SAFETY PRECAUTIONS IN PLACE, WILL CONTINUE TO MONITOR.
[2019-04-05] MEDS ORDERED: ATIVAN0.5 MG PO (12:42)
[2019-04-05 14:30] VITALS: BP 157/75
--- NOTE | 2019-04-05 16:35 | NUR ---
PT RESTING IN BED. RESPIRATIONS EVEN AND UNLABORED ON RA. NO S/S OF DISTRESS AT THIS TIME. WILL CONTINUE TO MONITOR.
--- NOTE | 2019-04-05 19:45 | NUR ---
PATIENT RESTING IN BED AT THIS TIME. PATIENT IS AWAKE ALERT AND ORIENTEDX3. IV SITE TO RIGHT HAND INTACT-APPEARS HEALTHY AT THIS TIME. CALL LIGHT IN REACH. WILL CONT TO MONITOR.
[2019-04-05 19:50] VITALS: BP 150/71
--- NOTE | 2019-04-05 23:15 | NUR ---
PATIENT RESTING IN BED-MEDICATED WITH SOLU-MEDROL 40MG IVP ORDERED VIA RIGHT HAND SITE. SITE REMAINS HEALTHY AT THIS TIME. PATIENT WITH NO COMPLAINTS AT THIS TIME. CALL LIGHT IN REACH. WILL CONT TO MONITOR.
--- NOTE | 2019-04-06 00:09 | NUR ---
PATIENT RESTING IN BED-EASY TO AROUSE WITH NO COMPLAINTS AT THIS TIME. IVF NS PATENT AND INFUSING VIA RIGHT HAND SITE. SITE APPEARS HEALTHY AT THIS TIME. SAFETY PRECAUTIONS REINFORCED. CALL LIGHT IN REACH. WILL CONT TO MONITOR.
--- NOTE | 2019-04-06 03:03 | NUR ---
PATIENT APPEARS SLEEPING AT THIS TIME WITH EYES CLOSED. RESP ARE EVEN AND UNLABORED. IVF NS PATENT AND INFUSING 100CC/HR VIA RIGHT HAND SITE. CALL LIGHT IN REACH. WILL CONT TO MONITOR.
[2019-04-06 04:44] VITALS: BP 137/63
[2019-04-06 05:12] LABS: HEMATOCRIT 35.4 % (37.0-47.0); HEMOGLOBIN 10.9 g/dl (12.0-16.0); MEAN CELL VOLUME 98.9 fL CALC (80.0-100.0); MEAN CORPUSCULAR HGB 30.4 pG CALC (26.0-32.0); MEAN CORPUSCULAR HGB CONC 30.8 g/L CALC (32.0-36.0); RED BLOOD COUNT 3.58 mill/uL (4.20-5.60); RED CELL DISTRI WIDTH 18.3 % (11.5-15.5)
--- NOTE | 2019-04-06 05:16 | NUR ---
APPEARS SLEEPING AT THIS TIME. RESP ARE EVEN AND UNLABORED. IVF PATENT AND INFUSING VIA RIGHT HAND SITE AT 100CC/HR. SITE REMAINS HEALTHY AT THIS TIME. CALL LIGHT IN REACH. WILL CONT TO MONITOR.
[2019-04-06 05:40] LABS: CREATININE 2.4 mg/dL (0.5-1.0); POTASSIUM 4.6 mmol/l (3.5-5.1)
--- NOTE | 2019-04-06 07:00 | NUR ---
REPORT RECEIVED FROM GUIDO GIBBONS;PT RESTING IN SUPINE POSITION RECEIVING BED BATH BY WATSON RAI;PT A&O X3, INTRODUCED SELF TO PT AND POC DISCUSSED;RESPIRATIONS EVEN AND UNLABORED ON RA;PT DENIES ANY CURRENT PAIN OR DISCOMFORTS;IV FLUIDS INFUSING TO RH WITH EASE;ENCOURAGED TO CALL FOR ASSISTANCE IF NEEDED;FALL PRECAUTIONS NOTED WITH BED IN THE LOWEST POSITION AND CALL LIGHT IN REACH;WILL CONTINUE TO MONITOR
[2019-04-06 08:24] VITALS: BP 172/68
--- NOTE | 2019-04-06 08:25 | NUR ---
PT RESTING IN SEMI FOWLERS POSITION, A&O X3;VS OBTAINED AND ASSESSMENT COMPLETED;PT DENIES ANY CURRENT PAIN OR DISCOMFORTS,PAIN SCALE AND REPORTING EDUCATED;RESPIRATIONS EVEN AND UNLABORED ON RA,CLEAR/DIMINISHED LUNG SOUNDS NOTED;ABDOMEN DISTENDED/SOFT ON PALPATION AND ACTIVE IN ALL 4 QUADRANTS;WEAK PEDAL PULSES WITH +2 EDEMA NOTED TO BLE, WORSE IN THE RIGHT.ENCOURAGED ELEVATION OF BLE;#24G TO RIGHT HAND INFUSING NS @ 100ML/HR,SITE APPEARS HEALTHY;PT DENIES ANY ADDITIONAL NEEDS AT THIS TIME AND IS ENCOURAGED TO CALL FOR ASSISTANCE IF NEEDED;FALL PRECAUTIONS IN PLACE WITH CALL LIGHT IN REACH;WILL CONTINUE TO MONITOR
--- NOTE | 2019-04-06 09:30 | NUR ---
AT BEDSIDE DISCUSSING POC.
--- NOTE | 2019-04-06 09:45 | NUR ---
LAB AT BEDSIDE
[2019-04-06 10:30] VITALS: BP 167/74
[2019-04-06 10:43] LABS: INTERNATIONAL NORMALIZED RATIO 2.3 RATIO (0.7-1.3); PROTHROMBIN TIME 23.6 SECONDS (9.0-12.5)
--- NOTE | 2019-04-06 11:00 | NUR ---
PT RESTING IN SEMI FOWLERS POSITION WITH FAMILY MEMBER AT BEDSIDE;RESPIRATIONS EVEN AND UNLABORED ON RA;PT REPORTS BLE PAIN AND REQUESTS PAIN MEDICATION, PT MEDICATION SCHEDULE EDUCATED AND PT VERBALIZES UNDERSTANDING;IV SITE TO RIGHT HAND REMAINS PATENT INFUSING NS @ 100ML/HR PER ORDER;PT DENIES ANY ADDITIONAL NEEDS AT THIS TIME AND IS ENCOURAGED TO CALL FOR ASSISTANCE IF NEEDED;FALL PRECAUTIONS IN PLACE WITH CALL LIGHT IN REACH;WILL CONTINUE TO MONITOR
--- NOTE | 2019-04-06 13:29 | NUR ---
PHYSICAL THERAPY AT BEDSIDE WORKING WITH PATIENT.
[2019-04-06 14:11] VITALS: BP 185/85
--- NOTE | 2019-04-06 14:15 | NUR ---
PT REPORTS BLE PAIN RATING 8/10 ON THE PAIN SCALE AND REQUESTS PAIN MEDICATION, PT MEDICATED WITH PRN LORTAB 5/325MG PO;WILL CONTINUE TO MONITOR FOR EFFECTIVENESS
--- NOTE | 2019-04-06 15:20 | NUR ---
PT OOB RESTING IN RECLINER;RESPIRATIONS EVEN AND UNLABORED ON RA;PT REPORTS THAT PAIN TO BLE HAS DECREASED TO 6/10 ON THE PAIN SCALE;IV FLUIDS INFUSING AT 100ML/HR ORDER;PT AMBULATED WITH A 2 PERSON ASSIST TO BEDSIDE COMMODE WITH A WEAK GAIT;PT DENIES ANY ADDITIONAL NEEDS AT THIS TIME;ASSESSMENT REMAINS UNCHANGED;ENCOURAGED TO CALL FOR ASSISTANCE IF NEEDED;CALL LIGHT IN REACH;WILL CONTINUE TO MONITOR
[2019-04-06 16:11] VITALS: BP 157/82
--- NOTE | 2019-04-06 19:30 | NUR ---
PATIENT APPEARS SLEEPING AT THIS TIME WITH HOB ELEVATED AND EYES CLOSED. RESP ARE EVEN AND UNLABORED. IVF PATENT AND INFUSING VIA RIGHT HAND SITE AT 100CC/HR. CALL LIGHT IN REACH. WILL CONT TO MONITOR.
[2019-04-06 19:53] VITALS: BP 153/83
--- NOTE | 2019-04-06 20:21 | NUR ---
PATIENT RESTING IN BED AT THIS TIME WITH HOB ELEVATED. PATIENT IS AWAKE ALERT AND ORIENTEDX3. PATIENT STATES NO OR MINIMAL RELIEF FROM LORTAB GIVEN EARLIER FOR BLE AND FOOT PAIN. PATIENT WITH IV SITE TO RIGHT HAND INTACT AND INFUSING NS AT 100CC/HR. SITE APPEARS HEALTHY AT THIS TIME. WAS OOB TO BSC TO VOID EARLIER. NO BM TODAY.SAFETY PRECAUTIONS REINFORCED. CALL LIGHT IN REACH. WILL CONT TO MONITOR.
--- NOTE | 2019-04-07 03:23 | NUR ---
PATIENT RESTING IN BED WATCHING TV-C/O MOISE LE AND FEET PAIN. PATIENT MEDICATED WITH LORTAB 5/325MG PO FOR 8/10 ON PAIN SCALE. PATIENT PROVIDED WITH COLA TO MICHAEL. IVF NS PATENT AND INFUSING VIA RIGHT HAND SITE. SITE REMAINS HEALTHY. SAFETY PRECAUTIONS REINFORCED. CALL LIGHT IN REACH. WILL CONT TO MONITOR
[2019-04-07 04:55] LABS: HEMATOCRIT 32.4 % (37.0-47.0); HEMOGLOBIN 10.2 g/dl (12.0-16.0); MEAN CELL VOLUME 97.3 fL CALC (80.0-100.0); MEAN CORPUSCULAR HGB 30.6 pG CALC (26.0-32.0); MEAN CORPUSCULAR HGB CONC 31.5 g/L CALC (32.0-36.0); RED BLOOD COUNT 3.33 mill/uL (4.20-5.60); RED CELL DISTRI WIDTH 18.1 % (11.5-15.5)
[2019-04-07 04:59] VITALS: BP 157/76
[2019-04-07 05:06] LABS: INTERNATIONAL NORMALIZED RATIO 2.9 RATIO (0.7-1.3); PROTHROMBIN TIME 28.6 SECONDS (9.0-12.5)
[2019-04-07 05:14] LABS: POTASSIUM 4.9 mmol/l (3.5-5.1)
--- NOTE | 2019-04-07 05:36 | NUR ---
PATIENT RESTING IN BED-TROUBLE SLEEPING TONIGHT EVEN WITH BEDTIME MEDS. STATES THAT HER PAIN IS DOWN AT THIS TIME TO 4. IVF PATENT AND INFUSING AT 100CC/HR VIA RIGHT HAND SITE.SITE REMAINS HEALTHY AT THIS TIME. SAFETY PRECAUTIONS REINFORCED. CALL LIGHT IN REACH. WILL CONT TO MONITOR.
--- NOTE | 2019-04-07 07:00 | NUR ---
REPORT RECEIVED FROM GUIDO GIBBONS;PT RESTING IN SUPINE POSITION;INTRODUCED SELF TO PT AND POC DISCUSSED;RESPIRATIONS EVEN AND UNLABORED ON RA;PT DENIES ANY CURRENT PAIN OR DISCOMFORTS;IV FLUIDS INFUSING TO RIGHT HAND WITH EASE;PT DENIES ANY ADDITIONAL NEEDS AT THIS TIME AND IS ENCOURAGED TO CALL FOR ASSISTANCE IF NEEDED;FALL PRECAUTIONS IN PLACE WITH BED IN THE LOWEST POSITION AND CALL LIGHT IN REACH;WILL CONTINUE TO MONITOR
--- NOTE | 2019-04-07 08:34 | NUR ---
PHYSICAL THERAPY AT BEDSIDE
[2019-04-07 08:50] VITALS: BP 151/75
--- NOTE | 2019-04-07 08:50 | NUR ---
PT RESTING IN SEMI FOWLERS POSITION, A&O X3;VS OBTAINED AND ASSESSMENT COMPLETED;PT DENIES ANY CURRENT PAIN, REPORTS TENDERNESS TO BLE. PAIN SCALE AND REPORTING EDUCATED;RESPIRATIONS EVEN AND UNLABORED ON RA, DIMINISHED LUNG SOUNDS;ABDOMEN DISTENDED/SOFT ON PALPATION AND ACTIVE IN ALL 4 QUADRANTS;EDEMA NOTED TO BLE, ENCOURAGED ELEVATION;SKIN INTACT;#24G TO RIGHT HAND INFUSING NS @ 100ML/HR PER ORDER;PT RE-POSITIONED IN BED FOR COMFORT;PT DENIES ANY ADDITIONAL NEEDS AT THIS TIME AND IS ENCOURAGED TO CALL FOR ASSISTANCE IF NEEDED;FALL PRECAUTIONS IN PLACE WITH CALL LIGHT IN REACH;WILL CONTINUE TO MONITOR
--- NOTE | 2019-04-07 08:52 | NUR ---
Pt was seen for gait training. She was OOB independently with the use of B hands. She then safely stood up with VCs and SBA. Her balance was fair. She was able to ambulate in the hallway with IV pole and SBA from therapist x ~50 ft. x 2. Pt was cued on proper posture and gait pattern as she was dragging B feet. She then returned to her room, preferred to be laying in bed. No adverse rxns noted or reported at the end of tx. Placed call cooper within her reach. Fall prec reinforced. [facility] score today: 14 points, in-patient rehab may be beneficial for conditioning and balance training.
[2019-04-07 08:53] VITALS: BP 151/75
--- NOTE | 2019-04-07 11:10 | NUR ---
PT RESTING IN SEMI FOWLERS POSITION;RESPIRATIONS EVEN AND UNLABORED ON RA;PT DENIES ANY CURRENT PAIN OR DISCOMFORTS;IV FLUIDS CONTINUE AT 100ML/HR,SITE APPEARS HEALTHY;PT DENIES ANY ADDITIONAL NEEDS AT THIS TIME AND IS ENCOURAGED TO CALL FOR ASSISTANCE IF NEEDED;FALL PRECAUTIONS IN PLACE WITH CALL LIGHT IN REACH;WILL CONTINUE TO MONITOR
[2019-04-07] MEDS ORDERED: PREDNISONE10 MG PO (12:47)
--- NOTE | 2019-04-07 12:53 | NUR ---
AT BEDSIDE DISCUSSING POC INCLUDING PLANS FOR DISCHARGE HOME, PT VERBALIZES UNDERSTANDING.
--- NOTE | 2019-04-07 13:30 | NUR ---
ALL DISCHARGE INSTRUCTIONS PROVIDED AT THIS TIME, QUESTIONS ANSWERED;RX FOR PREDNISONE PROVIDED AND PT INSTRUCTED TO TAKE TO THE PHARMACY;IV SITE REMOVED WITH CATHETER INTACT;PT DENIES ANY ADDITIONAL QUESTIONS OR NEEDS;WHEELCHAIR TO BE PROVIDED FOR DISCHARGE HOME;FRIEND PROVIDED TRANSPORTATION.
--- NOTE | 2019-04-07 13:40 | NUR ---
Discharge instructions given. Patient verbalizes understanding of same. Discharged in stable condition via Wheelchair to Home with friend. All belongings sent with pt. Pt transported to [facility] via wheelchair in stable condition accompanied by volunteer. friend providing transportation home.
== END 2019-04-07 13:40 ==
LOC: ED 06:53 → ED-I 09:42 → ED 10:03 → MS2 10:04
PROVIDERS: Emergency Medicine; ADMIT Internal Medicine; ATTEND Internal Medicine
DX: M10.072 Idiopathic gout, left ankle and foot (principal); M10.071 Idiopathic gout, right ankle and foot; N17.9 Acute kidney failure, unspecified; I16.0 Hypertensive urgency; I12.9 Hypertensive chronic kidney disease with stage 1 through stage 4 chronic kidney disease, or unspecified chronic kidney disease; M19.90 Unspecified osteoarthritis, unspecified site; G62.9 Polyneuropathy, unspecified; E78.5 Hyperlipidemia, unspecified; I48.91 Unspecified atrial fibrillation; K21.9 Gastro-esophageal reflux disease without esophagitis; D72.829 Elevated white blood cell count, unspecified; Z79.01 Long term (current) use of anticoagulants; Z86.711 Personal history of pulmonary embolism; Z86.718 Personal history of other venous thrombosis and embolism; Z86.73 Personal history of transient ischemic attack (TIA), and cerebral infarction without residual deficits; N18.3 Chronic kidney disease, stage 3 (moderate)

== ENCOUNTER 2019-04-28 07:13 | Emergency (ER) | payer MEDICARE, OTHER ==
[~2019-04-28] VITALS: Ht 160 cm; Wt 92.7 kg
[~2019-04-28 07:13] MED LIST changes: +OMEPRAZOLE DR40 MG PO; +PREDNISONE10 MG PO; +ZYLOPRIM100 MG PO
[2019-04-28 07:50] LABS: HEMATOCRIT 37.8 % (37.0-47.0); HEMOGLOBIN 11.7 g/dl (12.0-16.0); IMMATURE GRANULOCYTES 0.9 % (0.0-5.0); MEAN CELL VOLUME 97.7 fL CALC (80.0-100.0); MEAN CORPUSCULAR HGB 30.2 pG CALC (26.0-32.0); NEUT# 7.04 thou/uL (2.00-7.15); RED BLOOD COUNT 3.87 mill/uL (4.20-5.60); RED CELL DISTRI WIDTH 17.5 % (11.5-15.5)
[2019-04-28 08:10] LABS: CREATININE 1.9 mg/dL (0.5-1.0)
[2019-04-28 08:12] LABS: POTASSIUM 3.7 mmol/l (3.5-5.1)
[2019-04-28 08:24] LABS: INTERNATIONAL NORMALIZED RATIO 1.4 RATIO (0.7-1.3); PROTHROMBIN TIME 14.2 SECONDS (9.0-12.5)
[2019-04-28] MEDS ORDERED: LASIX 20 MG TAB20 MG PO (09:48)
[2019-04-28] MEDS ORDERED: PREDNISONE20 MG PO (09:50)
[2019-04-28 10:07] LABS: URINE BILIRUBIN - DIPSTICK NEGATIVE (NEGATIVE); URINE BLOOD DIPSTICK SMALL (NEGATIVE); URINE COLOR YELLOW; URINE GLUCOSE - DIPSTICK NEGATIVE (NEGATIVE); URINE KETONE NEGATIVE (NEGATIVE); URINE LEUK ESTERASE NEGATIVE (NEGATIVE); URINE NITRITE - DIPSTICK NEGATIVE (Negative); URINE PH 6.5 (4.5-8.0); URINE PROTEIN - DIPSTICK 100 mg/dL (NEG-TRACE); URINE SPECIFIC GRAVITY 1.015; URINE UROBILINOGEN - DIPSTICK 0.2 E.U./dL (0.2)
[2019-04-28 10:18] LABS: URINE WBC 0-2 WBC/hpf (0-5)
[2019-04-28] MEDS ORDERED: MECLIZINE25 MG PO (10:23)
[2019-04-28 10:41] VITALS: BP 173/71
== END 2019-04-28 11:01 | disposition home or self-care (01) ==
LOC: ED 07:13
PROVIDERS: Family Medicine
DX: R42 Dizziness and giddiness (principal); I10 Essential (primary) hypertension; Z86.73 Personal history of transient ischemic attack (TIA), and cerebral infarction without residual deficits; Z86.711 Personal history of pulmonary embolism; Z79.01 Long term (current) use of anticoagulants